=== PATIENT | female | born 1935 | race Caucasian/White ===

== ENCOUNTER 2016-12-24 20:12 | Emergency (ER) | payer OTHER ==
[2016-12-24 20:24] VITALS: BP 152/74; PULSE 106; TEMP 98.6; BMI 27.4
--- NOTE | 2016-12-24 20:29 | PDOC ---
History of Present Illness - General History Source: Patient Exam Limitations: No Limitations - History of Present Illness Initial Comments: 12/24/16 21:13 A portion of this note was documented by scribe services under my direction. I have reviewed the details of the note, within reason, and agree with the documentation. The case summary and management plan written by me. Assessment and plan: This is a 81-year-old female who was ambulating when her leg gave out and she fell striking her left forehead area. Patient did not pass out and on exam she has a normal nonfocal neuro exam. Patient has no evidence on exam of cervical injury or any other injuries. Patient had a head CT that was negative for any acute pathology Patient discharged home with her will follow-up with her primary care doctor as needed. was given head injury discharge instructions. <Chance Eng I - Last Filed: 12/24/16 21:13> - General History Source: Patient Exam Limitations: No Limitations - History of Present Illness Initial Comments: 12/24/16 20:48 The patient is a 81 year old female, with significant past medical history of HTN, who presents today complaining with a head injury s/p mechanical fall. The patient states that she was attempting to multitask while doing housework when she slipped, her knee buckled, and she bumped her head on the door jam. There was no LOC. Initially after the fall, she had a headache which has subsided. She is able to bear weight. Denies LOC. Denies neck pain. Denies changes in vision. Denies lightheadedness, dizziness. Denies nausea, vomiting, fever, chills. Allergies: none reported PCP- Dr. Guerrero Review of systems General: No fevers or chills, no weakness, no weight loss HEENT: head injury s/p mechanical fall. No change in vision. No sore throat,. No ear pain CardioVascular: No chest pain or shortness of breath Respiratory:No cough, or wheezing. Gastrointestinal: no nausea, vomiting, diarrhea or constipation, No rectal bleeding Genitourinary: No dysuria, hematuria, or frequency Musculoskeletal: No joint or muscle pain or swelling Neurologic: No headache, vertigo, dizziness or loss of consciousness Psychiatric: nor depression Skin: No rashes or easy bruising Endocrine: no increased thirst or abnormal weight change Allergic: no skin or latex allergy All other systems reviewed and normal Physical Exam GENERAL: The patient is awake, alert, and fully oriented, in no acute distress. HEAD: Left forehead contusion. Skin intact. Contusion does not involve the orbits. Cervical spine nontender to palpation. EYES: Pupils equal, round and reactive to light, extraocular movements intact, sclera anicteric, conjunctiva clear. EXTREMITIES: Normal range of motion, no edema. NEUROLOGICAL: Nonfocal exam. Grossly intact. Normal speech, normal gait. PSYCH: Normal mood, normal affect. SKIN: Warm, Dry, normal turgor, no rashes or lesions noted. <Fadia Meyers - Last Filed: 12/24/16 21:25> - General Chief Complaint: Injury Stated Complaint: HEAD INJURY Time Seen by Provider: 12/24/16 20:28 Past History - Past Medical History COPD: Yes HTN: Yes Hypercholesterolemia: Yes - Psycho/Social/Smoking Cessation Hx Suicidal Ideation: No Smoking Status: Yes Smoking History: Never smoked Have you smoked in the past 12 months: No Number of Cigarettes Smoked Daily: 0 Hx Alcohol Use: Yes Drug/Substance Use Hx: No Substance Use Type: Alcohol <Chance Eng I - Last Filed: 12/24/16 21:13> <Fadia Meyers - Last Filed: 12/24/16 21:25> - Past Medical History Allergies/Adverse Reactions: Allergies Allergy/AdvReac Type Severity Reaction Status Date / Time No Known Allergies Allergy Verified 08/23/16 13:41 Home Medications: Ambulatory Orders Amlodipine Besylate [Norvasc -] 0 mg PO DAILY 03/29/16 Olmesartan Medoxomil [Benicar -] 0 mg PO DAILY 03/29/16 *Physical Exam - Vital Signs Last Vital Signs Temp Pulse Resp BP Pulse Ox 98.6 F 106 H 18 152/74 99 12/24/16 20:13 12/24/16 20:13 12/24/16 20:13 12/24/16 20:13 12/24/16 20:13 <Chance Eng I - Last Filed: 12/24/16 21:13> - Vital Signs Last Vital Signs Temp Pulse Resp BP Pulse Ox 98.6 F 106 H 18 152/74 99 12/24/16 20:13 12/24/16 20:13 12/24/16 20:13 12/24/16 20:13 12/24/16 20:13 <Fadia Meyers - Last Filed: 12/24/16 21:25> ED Treatment Course - RADIOLOGY Radiograph Interpretation: 12/24/16 21:25 EXAM#: TYPE/EXAM: RESULT: [id number] CT/HEAD CT WITHOUT CONTRAST Status post trauma CT scan of the brain. A noncontrast CT scan of the brain was performed. There is moderate volume loss and ventricular dilatation. Mild chronic microvascular ischemic changes are present No gross mass lesion, focal acute infarct or intracranial hemorrhage is seen. There is no shift of the midline structures. Visualized paranasal sinuses and mastoid air cells are well aerated. Calcification of the cavernous carotid arteries are noted. The calvarium is intact moderate soft tissue swelling of the scalp/hematoma over left side of the frontal bone, superiorly Impression: Moderate atrophy. No gross evidence of a focal intracranial lesion or hemorrhage is seen. Moderate soft tissue swelling of the scalp/hematoma over left side of the frontal bone extending to the high convexity. Reported By: Alonso Garrido MD 12/24/[id number] <Fadia Meyers - Last Filed: 12/24/16 21:25> *DC/Admit/Observation/Transfer <Chance Eng I - Last Filed: 12/24/16 21:13> - Attestations Scribe Attestion: 12/24/16 20:49 Documentation prepared by ANALIA Mcbride, acting as medical assistant dermatology for Chance Eng MD. <Fadia Meyers - Last Filed: 12/24/16 21:25> Diagnosis at time of Disposition: Traumatic hematoma of forehead Qualifiers: Encounter type: initial encounter Qualified Code(s): S00.83XA - Contusion of other part of head, initial encounter - Discharge Dispostion Disposition: HOME Condition at time of disposition: Stable - Referrals Referrals: Lazaro Guerrero [Primary Care Provider] - - Patient Instructions Printed Discharge Instructions: DI for Closed Head Injury Additional Instructions: Someone should check on you once tonight during the night. You should be arousable to your Normal level of arousability for that time of the night. If you have been vomiting, have had a seizure, or you are unable to be aroused or the person checking on you is concerned that there has been a change in your mental status they should call 911 and have you brought back to the emergency department. You can take Tylenol as needed for pain. Return to the emergency department immediately with ANY new, persistent or worsening symptoms. Continue any medications as previously prescribed by your physician. You should follow up with your primary doctor as soon as possible regarding today's emergency department visit. . Please make sure your doctor reviews the results of your emergency evaluation. Thank you for coming to the Emergency Department today for your care. It was a pleasure to see you today. Please note that your evaluation is INCOMPLETE until you follow-up with your doctor.
== END 2016-12-24 21:27 | disposition home or self-care (01) ==
LOC: FER 20:12
DX: S00.83XA Contusion of other part of head, initial encounter (principal); W18.39XA Other fall on same level, initial encounter; Y93.01 Activity, walking, marching and hiking; Y92.9 Unspecified place or not applicable; J44.9 Chronic obstructive pulmonary disease, unspecified; I10 Essential (primary) hypertension; E78.00 Pure hypercholesterolemia, unspecified
CPT/HCPCS: 70450-TC; 99281-25

== ENCOUNTER 2021-01-11 12:08 | Emergency (ER) | payer OTHER ==
[2021-01-11 12:23] VITALS: BP 130/70; PULSE 99; TEMP 98.2; BMI 23.1
== END 2021-01-11 13:04 | disposition home or self-care (01) ==
LOC: FER 12:08
DX: F41.9 Anxiety disorder, unspecified (principal)
CPT/HCPCS: 99283-25

== ENCOUNTER 2021-09-11 15:07 | Observation (INO) | payer OTHER ==
[2021-09-11] MEDS ORDERED: SODIUM CHLORIDE 0.9% 1000 ML INFUS.BAG IV ONE (15:10)
[2021-09-11 15:38] LABS: ALBUMIN 4.2 g/dl (3.4-5.0); BILIRUBIN,TOTAL 0.9 mg/dl (0.2-1); CALCIUM 9.4 mg/dl (8.5-10)
[2021-09-11 16:52] LABS: BASO % 0.6 % (0-2.0); EOS % 0.6 % (0-4.5); HEMOGLOBIN 12.6 GM/dL (10.7-15.3); LYMPH % 16.2 % (8-40); MCH 30.6 pg (25.7-33.7); MEAN CELL VOLUME 90.1 fl (80-96); MEAN PLT VOLUME 7.5 fl (7.5-11.1); NEUT % 77.6 % (42.8-82.8); PLATELET COUNT 304 10^3/uL (134-434); RDW 14.2 % (11.6-15.6)
[2021-09-11] MEDS ORDERED: ASPIRIN 81 MG CHEWABLE TABLETS PO ONE (17:03)
[2021-09-11] MEDS ORDERED: ASPIRIN 81 MG CHEWABLE TABLETS ONE (17:06)
[2021-09-11 20:00] VITALS: BMI 20.7
[2021-09-11 21:41] LABS: CALCIUM 8.9 mg/dl (8.5-10)
[2021-09-11] MEDS ORDERED: MELATONIN 5 MG TABLETS PO ONE (22:36)
[2021-09-12 04:37] VITALS: TEMP 98.5
[2021-09-12 06:50] VITALS: PULSE 74
[2021-09-12 08:30] LABS: CALCIUM 9.3 mg/dl (8.5-10); CREATININE 0.9 mg/dl (0.55-1.3)
[2021-09-12] MEDS ORDERED: PHENAZOPYRIDINE HCL 100 MG TABLET (FP) PO ONE (08:41)
[2021-09-12 09:37] LABS: BASO % 1.2 % (0-2.0); EOS % 1.3 % (0-4.5); HEMATOCRIT 35.1 % (32.4-45.2); HEMOGLOBIN 11.7 GM/dL (10.7-15.3); LYMPH % 21.7 % (8-40); MCH 30.1 pg (25.7-33.7); MCHC 33.3 g/dl (32.0-36.0); MEAN CELL VOLUME 90.2 fl (80-96); MEAN PLT VOLUME 7.7 fl (7.5-11.1); NEUT % 68.8 % (42.8-82.8); PLATELET COUNT 288 10^3/uL (134-434); RDW 14.5 % (11.6-15.6); WHITE BLOOD COUNT 6.5 K/mm3 (4.0-10.0)
[2021-09-12 09:41] VITALS: BP 108/57
[2021-09-12] MEDS ORDERED: amLODIPine BESYLATE 10 MG TABLET (FP) PO SCH (10:00)
[2021-09-12] MEDS ORDERED: ASPIRIN COATED 81 MG TABLET.EC PO SCH (10:00)
[2021-09-12] MEDS ORDERED: ENOXAPARIN NA (PORCINE) 30 MG/0.3 ML DISP.SYRIN SQ SCH ×2 (10:00)
== END 2021-09-12 11:00 | disposition left against medical advice (07) ==
LOC: FER 15:07 → FM/S 16:47
PROVIDERS: ADMIT Internal Medicine; ATTEND Nurse Practitioner Family
PROC: 3E0337Z Introduction of Electrolytic and Water Balance Substance into Peripheral Vein, Percutaneous Approach (ICD-10-PCS; principal; 2021-09-11)
DX: F41.9 Anxiety disorder, unspecified (principal); I10 Essential (primary) hypertension; D51.0 Vitamin B12 deficiency anemia due to intrinsic factor deficiency; R07.89 Other chest pain; E78.5 Hyperlipidemia, unspecified; E87.1 Hypo-osmolality and hyponatremia
CPT/HCPCS: 36415; 71046-TC-FY; 80048; 80053; 80061; 81003; 81015; 82436; 82607; 83930; 83935; 84133; 84300; 84443; 84484; 85025; 87086; 93005; 96360; 99285-25; C9803; G0378; U0003; U0005

== ENCOUNTER 2023-01-25 13:52 | Emergency (ER) | payer OTHER ==
[2023-01-25 14:06] VITALS: BP 147/84; PULSE 82; RESP 20; TEMP 98; BMI 21.6
[2023-01-25] MEDS ORDERED: LORazepam 1 MG TABLET PO ONE ×2 (14:23→14:24)
[2023-01-25] MEDS ORDERED: LORazepam 0.5 MG TABLET ONE (14:27)
== END 2023-01-25 15:08 | disposition home or self-care (01) ==
LOC: FER 13:52
DX: F41.9 Anxiety disorder, unspecified (principal)
CPT/HCPCS: 99283-25